=== PATIENT | female | born 1990 | race Caucasian/White ===

== ENCOUNTER 2022-05-30 21:41 | Emergency (ER) | payer OTHER ==
[2022-05-30 22:10] VITALS: O2SAT 100
--- NOTE | 2022-05-30 22:33 | ERPHSYRPT ---
- History of Present Illness Time Seen by Provider: 05/30/22 22:27 Source: patient Exam Limitations: no limitations Patient Subjective Stated Complaint: "I want to make a police report and be seen." Triage Nursing Assessment: pt ambulated into the er; pt is axo x4; c/o anxiety; pt is talkative; pt denies pain; pt denies homicial and suicidal thought; clear lung sounds in all lobes; clear heart tone; pt denies current CP; pt denies syncope; skin PDW; vitals wnl Physician History: pt reports anxiety over some concerns about alleged potential criminal human trafficing in the area and requests us to call law enforcement. SHe states she has some chest pain due to this anxiety, nonradiating, and mild sobreath. vague family hx of ht dx , and thinks she has had elevated bp but no treatment required previously. No prior known ht dx. DVT or PE. No recnet hosp or surgeries. No hx trauma. and none noted on exam. full ROM all ext without pain. pt still is vaping giving here a smoking risk factor. AO x 3 , denies suicidal or homicidal intentions, and has normal mental status at this time, but seems to have suspicious thoughts of several area establishments. The police report that she has had some prior encounters with law enforcement, but not this variety of inquiry Timing/Duration: today Severity of Symptoms-Max: moderate Severity of Symptoms-Current: moderate Context related to: other (outside businesses and establishments) Suicidal thoughts: other (none) Associated Symptoms: anxiety Previous symptoms: different symptoms Allergies/Adverse Reactions: No Known Drug Allergies Allergy (Unverified 05/30/22 21:59) Home Medications: No Reportable Medications [No Reported Medications] 05/30/22 [History] Hx Tetanus, Diphtheria Vaccination/Date Given: No Hx Influenza Vaccination/Date Given: No Hx Pneumococcal Vaccination/Date Given: No Immunizations Up to Date: No Travel Risk - International Travel Have you traveled outside of the country in past 3 weeks: No - Coronavirus Screening Are you exhibiting any of the following symptoms?: No Close contact with a COVID-19 positive Pt in past 14-21 Days: No - Vaccine Status Have you recieved a Covid-19 vaccination: No - Past Medical History Pertinent Past Medical History: No - Past Surgical History Past Surgical History: No - Social History Smoking Status: Never smoker Exposure to second hand smoke: No Drug Use: none Patient Lives Alone: No - Female History Hx Now: No - Review of Systems Constitutional: No Fever, No Chills Eyes: No Symptoms Ears, Nose, & Throat: No Symptoms Respiratory: Dyspnea, No Cough Cardiac: Chest Pain, No Edema, No Syncope Abdominal/Gastrointestinal: No Abdominal Pain, No Nausea, No Vomiting, No Diarrhea Genitourinary Symptoms: No Dysuria Musculoskeletal: No Back Pain, No Neck Pain Skin: No Symptoms, No Rash Neurological: No Dizziness, No Focal Weakness, No Sensory Changes Psychological: Anxiety Endocrine: No Symptoms Hematologic/Lymphatic: No Symptoms Immunological/Allergic: No Symptoms All Other Systems: Reviewed and Negative - Nursing Vital Signs Nursing Vital Signs: Initial Vital Signs Temperature 97.5 F 05/30/22 21:59 Pulse Rate 91 H 05/30/22 21:59 Respiratory Rate 14 05/30/22 21:59 Blood Pressure 125/78 05/30/22 21:59 O2 Sat by Pulse Oximetry 100 05/30/22 21:59 Pain Scale Pain Intensity 0 - Physical Exam General Appearance: no apparent distress Eyes, Ears, Nose, Throat Exam: normal ENT inspection, moist mucous membranes Neck Exam: normal inspection, non-tender, supple Respiratory Exam: normal breath sounds, lungs clear, No respiratory distress Cardiovascular Exam: regular rate/rhythm, No edema Gastrointestinal/Abdominal Exam: soft, No tenderness, No distention Extremities Exam: normal inspection, normal range of motion, No evidence of injury, No edema Peripheral Pulses: carotid (R): 2+, carotid (L): 2+, femoral (R): 2+, femoral (L): 2+, dorsalis-pedis (R): 2+, dorsalis-pedis (L): 2+ Current Suicidality: denies suicide plan Neurological Exam: alert, patient intake representative II-XII nml as tested, oriented x 3 Appearance: appropriate appearance, neat, no memory impairment Behavior/Eye Contact/Speech: alert & cooperative, good eye contact, normal speech Thoughts/Hallucinations: no apparent hallucination, caodaism Skin Exam: normal color, warm, dry, No rash SpO2 Interpretation: normal SpO2: 100 O2 Delivery: Room Air - Course Nursing assessment & vital signs reviewed: Yes Ordered Tests: Active Orders 24 hr Category Date Time Status Clean Catch Urine Specimen STAT Care 05/30/22 22:37 Active EKG-ER Only STAT Care 05/30/22 22:37 Active IV Insertion STAT Care 05/30/22 22:37 Active Tele-Health Consult ROUTINE Cons 05/30/22 22:39 Active CHEST 1 VIEW (PORTABLE) Stat Exams 05/30/22 22:44 Ordered ACETAMINOPHEN Stat Lab 05/30/22 22:39 Ordered CBC W DIFF Stat Lab 05/30/22 22:37 Ordered CMP Stat Lab 05/30/22 22:37 Ordered D-DIMER QUANTITATIVE Stat Lab 05/30/22 22:41 Ordered ETHYL ALCOHOL Stat Lab 05/30/22 22:39 Ordered HCG QUALITATIVE,SERUM Stat Lab 05/30/22 Ordered SALICYLATE Stat Lab 05/30/22 22:39 Ordered T4 (Thyroxine) Stat Lab 05/30/22 Ordered TROPONIN Q4H Lab 05/30/22 22:45 Ordered TROPONIN Q4H Lab 05/31/22 02:45 Ordered TROPONIN Q4H Lab 05/31/22 06:45 Ordered TSH [TSH, 3RD Generation] Stat Lab 05/30/22 22:40 Ordered UA W/RFX CULTURE Stat Lab 05/30/22 Ordered Urine Triage Profile Stat Lab 05/30/22 22:38 Ordered Medication Summary Generic Name Dose Route Start Last Admin Trade Name Freq PRN Reason Stop Dose Admin Sodium Chloride 1,000 mls @ 999 mls/hr 05/30/22 22:37 05/30/22 22:53 Sodium Chloride 0.9% 1000 Ml IV 05/30/22 23:37 Not Given .Q1H1M STA - Progress Progress: improved, re-examined Progress Note: 05/30/22 23:03 The pt wishes to decline any current medical workup for her symptoms. I have explained that we cannot begin to exclude any serious cardiac or other medical conditions without some more workup and that there could be significant and serious pathology evolving undetected leading to complications including . She understands and still wishes to decline including further mental evaluation and referrals. She still has a normal mental cognition and the capacity to make this choice and has no suicidal or homicidal ideations or intent at this time. The concerns she has requiring the police requests for local criminal activities, although may seem paranoid are not accompanied by any concerning harmful thoughts and the police are going to investigate those concerns. She does say that she will accept a mental health outpt referral. I requested a social work referral for this pt since she has expressed that she would like a different place to stay and needs help with transportation. Ms. Baird is looking intp this. 05/30/22 23:23 Counseled pt/family regarding: need for follow-up - Departure Departure Disposition: AMA Clinical Impression: Anxiety disorder, chest pain unknown cause Condition: Good Critical Care Time: No Referrals: ELIAS CANDELARIO [Primary Care Provider] - Follow up/PCP as directed Instructions: Anxiety, Adult (DC), Chest Pain, Adult ED Additional Instructions: followup with the outpatient mental health service referral. follow-up with the social work information to assist you with transportation and housing. There could be a serious cause other than your anxiety and stress for your symptoms that we could not detect without further testing, therefore follow-up with a dr is important. return meantime if any further symptoms or concerns.
[2022-05-30] MEDS ORDERED: Sodium Chloride 0.9% 1000 ML 1,000 ML IV STA (22:37)
[2022-05-30 23:46] VITALS: BP 112/74; PULSE 88
== END 2022-05-30 23:45 | disposition left against medical advice (07) ==
LOC: ED 21:41
DX: F41.9 Anxiety disorder, unspecified (principal); R07.9 Chest pain, unspecified; R06.02 Shortness of breath; Z28.310 Unvaccinated for COVID-19
CPT/HCPCS: 99281